=== PATIENT | male | born 1965 | race Two or more races ===

== ENCOUNTER 2021-12-19 16:32 | Inpatient (IN) | payer MEDICAID ==
[~2021-12-19] VITALS: Ht 177.8 cm; Wt 85.3 kg
--- NOTE | 2021-12-19 17:27 | NUR ---
COVID ANTIGEN OBTAINED AND SENT TO LAB
--- NOTE | 2021-12-19 17:30 | NUR ---
COVID PCR DONE AND SENT TO THE LAB
--- NOTE | 2021-12-19 17:37 | NUR ---
BIB [facility] 80 FROM AN [facility]RG[facility], TESTED (+) 2 WEEKS AGO, LOW O2SAT IN CLINIC, C/O WEAKNESS, BODYPAIN, NO APPETITE, COUGH X 2 WEEKS. DENIES ANY FEVER OR CHEST PAIN. AWAITING MD UNDERWOOD
[2021-12-19] MEDS ORDERED: NITROFURANTOIN/MONOHYDRATE MACROCRYSTALS 100 MG CAPSULE PO ONE (19:00)
[2021-12-19] MEDS ORDERED: NITROFURANTOIN/MONOHYDRATE MACROCRYSTALS 100 MG CAPSULE ONE (19:21)
[2021-12-19 20:11] LABS: BASOPHILS % (AUTO) 0.3 % (0.0-2.0); EOSINOPHILS % (AUTO) 1.6 % (0.0-6.0); HEMATOCRIT 39 % (39-51); HEMOGLOBIN 13.8 g/dL (13.5-17.5); LYMPHOCYTES # (AUTO) 1.9 K/uL (0.8-4.8); LYMPHOCYTES % (AUTO) 24.6 % (20.0-44.0); MEAN CORPUSCULAR HGB CONC 36 g/dl (31.0-36.0); MEAN CORPUSCULAR VOLUME 101 fL (80-96); MONOCYTES # (AUTO) 0.8 K/uL (0.1-1.30); MONOCYTES % (AUTO) 10.2 % (2.0-12.0); NEUTROPHILS # (AUTO) 4.9 K/uL (1.8-8.9); NEUTROPHILS % (AUTO) 63.3 % (43.0-81.0); PLATELET COUNT (AUTO) 573 K/uL (150-450); RED BLOOD CELL COUNT(AUTO) 3.85 MIL/uL (4.5-6.0); WHITE BLOOD COUNT (AUTO) 7.8 K/uL (4.3-11.0)
--- NOTE | 2021-12-19 20:12 | NUR ---
RT AT BEDSIDE
[2021-12-19 20:22] LABS: CALCIUM, SERUM 8.6 mg/dL (8.5-10.1); CARBON DIOXIDE 26 mmol/L (21-32); CHLORIDE 106 mmol/L (98-107); CREATININE 1.1 mg/dL (0.6-1.3); GLUCOSE 107 mg/dL (74-106); POTASSIUM 4.4 mmol/L (3.5-5.1); SODIUM SERUM 137 mmol/L (136-145); UREA NITROGEN, BLOOD 17 mg/dL (7-18)
[2021-12-19 20:26] LABS: C-REACTIVE PROTEIN 0.2 mg/dL (0.0-0.9); D-DIMER 3.72 mg/L(FEU (0.17-0.50)
[2021-12-19 20:35] LABS: ALANINE AMINOTRANSFERASE 82 U/L (12-78); ALKALINE PHOSPHATASE 115 U/L (46-116); ASPARTATE AMINOTRANSFERASE 34 U/L (15-37); BILIRUBIN,TOTAL 0.4 mg/dL (0.2-1.0); TOTAL PROTEIN, SERUM 7.3 g/dL (6.4-8.2)
[2021-12-19] MEDS ORDERED: IOHEXOL-350 100 ML VIAL IV ONE (20:36)
[2021-12-19] MEDS ORDERED: IV NS 0.9% 250 ML IV ONE (20:36)
[2021-12-19] MEDS ORDERED: CT SWABBABLE VALVE TRANS SET 1 EA INFUS.SET MC ONE (20:37)
[2021-12-19] MEDS ORDERED: DEXAMETHASONE SOD PHOSPHATE 10 MG/ML VIAL IV ONE (21:00)
[2021-12-19] MEDS ORDERED: DEXAMETHASONE SOD PHOSPHATE 10 MG/ML VIAL ONE (22:13)
--- NOTE | 2021-12-19 22:15 | NUR ---
PT BACK FROM CT
[2021-12-20] MEDS ORDERED: ENOXAPARIN SODIUM 40 MG/0.4 ML DISP.SYRIN SQ ONE (00:28)
[2021-12-20] MEDS ORDERED: MAGNESIUM HYDROXIDE 30 ML UDC PO PRN (00:30)
[2021-12-20] MEDS ORDERED: ACETAMINOPHEN 325 MG TABLET PO PRN (00:30)
[2021-12-20] MEDS ORDERED: ONDANSETRON HCL/PF 4 MG/2 ML VIAL IVP PRN (00:30)
[2021-12-20] MEDS ORDERED: MAG HYDROX/AL HYDROX/SIMETH 30 ML UDC PO PRN (00:30)
[2021-12-20] MEDS ORDERED: ALBUTEROL SULFATE INH 18 GM HFA.AER.AD IH PRN (00:30)
[2021-12-20] MEDS ORDERED: Z GUARD REMEDY 4 OZ OINT TP PRN (00:30)
[2021-12-20] MEDS: ENOXAPARIN SODIUM 40 MG/0.4 ML DISP.SYRIN SQ SCH ×2 (00:45→20:59)
[2021-12-20 03:19] LABS: ABG BASE EXCESS 3.8 mmol/L; ABG PH 7.461 (7.350-7.450); ABG PO2 61.2 mmHg (75.0-100.0); COHb 0.5 % (0.5-1.5); MetHb 0.3 % (0.0-1.5); O2Hb 91.1 % (94.0-97.0); SITE, ABG Left Radial; VENT MODE, BG RA
--- NOTE | 2021-12-20 06:45 | NUR ---
ADLS DONE. ALL NEEDS MET. VSS AT THIS TIME.
[2021-12-20] MEDS ORDERED: ALBUTEROL SULFATE 8 GM HFA.AER.AD IH PRN (08:00)
[2021-12-20] MEDS ORDERED: PANTOPRAZOLE 40 MG TABLET.DR PO ONE (08:04)
[2021-12-20] MEDS: PANTOPRAZOLE 40 MG TABLET.DR PO SCH (08:08)
[2021-12-20 08:12] LABS: BILIRUBIN,URINE NEGATIVE (NEGATIVE); COLOR,URINE YELLOW (YELLOW); LEUKOCYTE ESTERASE ,URINE NEGATIVE (NEGATIVE); NITRITE, URINE NEGATIVE (NEGATIVE); PH,URINE 7.5 (5.0-8.0); PROTEIN,URINE NEGATIVE (NEGATIVE); UGLUCOSE NEGATIVE (NEGATIVE); UROBILINOGEN,URINE 0.2 EU/dL (0.2)
--- NOTE | 2021-12-20 08:31 | NUR ---
REPORT GIVEN TO MIHIR ALLAN. PT AWAITING TRANSPORT.
--- NOTE | 2021-12-20 09:12 | NUR ---
patient room air sat at rest 86%,per md arrange home oxygen.
[2021-12-20] MEDS: DEXAMETHASONE SOD PHOSPHATE 10 MG/ML VIAL IV SCH (10:03)
[2021-12-20 12:00] VITALS: BP 128/75
--- NOTE | 2021-12-20 12:53 | NUR ---
INSTRUCTOR WEAVING NOTES PT CAME TO UNIT IN STABLE CONDITION, A/O X4, [place] SPEAKING, NO S.S OF SOB OR DISTRESS NOTED. IV ACCESS ON R AC 20G. PT IS AMBULATORY WITH SKIN INTACT. REPORT RECEIVED BY AMANDA IN ER. ALL SAFETY MEASURES IN PLACE, BED IN LOWEST LOCKED POSITION, SIDE RAILS UP X3, CALL LIGHT WITHIN REACH, WILL CONTINUE TO MONITOR THROUGHOUT SHIFT.
[2021-12-20 18:00] VITALS: BP 115/70
--- NOTE | 2021-12-20 18:21 | NUR ---
RN CLOSING NOTES PT IS RESTING BED, A.O X 4 CITIZEN OF [place] SPEAKING, ON 4L NC SATING AT 94%. PT IS AMBULATORY AND SKIN IS INTACT. IV ACCESS AT R AC 20G. NO S/S OF SOB OR DISTRESS. NO C/O PAIN. PT TOLERATED ALL MEDICATIONS AND TREATMENTS WELL. ALL SAFETY MEASURES IN PLACE, BED IN LOWEST LOCKED POSITION, SIDE RAILS UP X3, CALL LIGHT WITHIN REACH. WILL ENDORSE TO TOBACCO ROLLER NURSE FOR EMILY.
[2021-12-20] MEDS ORDERED: KEY,NONCONTROL,TO KEEP IN PYXI 1 EA MC ONE (19:06)
--- NOTE | 2021-12-20 19:35 | NUR ---
RN OPENING NOTES RECEIVED PT IN BED AWAKE, A/O X4, [place] SPEAKING AND VERBALLY RESPONSIVE. ON 4L VIA N/C AND PT TOLERATED WELL. IV ACCESS ON RAC# 20G INTACT AND PATENT. NO S/S OF INFILTRATIONS. NO C/O PAIN OR DISCOMFORT. NO ACUTE DISTRESS. ALL SAFETY MEASURES IN PLACE, BED IN LOWEST POSITION AND LOCKED. SIDE RAILS UP X3, PLACE CALL LIGHT WITHIN REACH. WILL CONTINUE TO MONITOR
[2021-12-20 20:00] VITALS: BP 112/72
--- NOTE | 2021-12-20 20:36 | NUR ---
RN NOTES: PT STRONGLY REFUSED TO VITAL SIGNS, OFFERED X3, EXPLAINED RISK AND BENEFIT BUT STILL REFUSED. WILL CONTINUE TO MONITOR Addendum: 12/20/21 at 2346 by LAURENT PETERSON RN wrong patient
--- NOTE | 2021-12-20 21:20 | NUR ---
RN NOTES: VENTOLIN 2 PUFF GIVEN C/O SOB. PT TOLERATED WELL. WILL CONTINUE TO MONITOR
[2021-12-21] VITALS: BP 97/60
[2021-12-21] MEDS: IV NS 0.9% 1,000 ML IV PRN ×2 (00:09→14:03)
[2021-12-21] MEDS: GUAIFENESIN/D-METHORPHAN HB 5 ML UDC PO PRN ×2 (00:12→14:03)
--- NOTE | 2021-12-21 00:20 | NUR ---
RN NOTES: RT C/O NON-PRODUCTIVE COUGH. NOTIFIED DEMARCUS CHANDLER. ORDERED ROBITUSSIN DM SYRUP 5ML Q6HRS FOR COUGH. ORDER NOTED AND CARRIED OUT. COUGH MEDICATIONS GIVEN PER PRN ORDER AND PT TOLERATED WELL. WILL CONTINUE TO MONITOR
[2021-12-21 04:00] VITALS: BP 111/74
--- NOTE | 2021-12-21 06:34 | NUR ---
RN CLOSING NOTES PT IN BED AWAKE, A/O X4, [place] SPEAKING AND VERBALLY RESPONSIVE. ON 4L VIA N/C, O2 SAT 96% AND PT TOLERATED WELL. IV ACCESS ON RAC# 20G INTACT AND PATENT, RUNNING NS @75CC/HR. NO S/S OF INFILTRATIONS. NO C/O PAIN OR DISCOMFORT. NO ACUTE DISTRESS. ALL DUE MED GIVEN ORDER AND PT TOLERATED WELL. COOPERATIVE WITH CARE. ALL SAFETY MEASURES IN PLACE, BED IN LOWEST POSITION AND LOCKED. SIDE RAILS UP X3, PLACE CALL LIGHT WITHIN REACH. WILL ENDORSE TO MORNING SHIFT NURSE.
--- NOTE | 2021-12-21 07:30 | NUR ---
RN OPENING NOTES PT RECEIVED IN BED AWAKE, A/O X4. ON 4L N/C AND PT TOLERATED WELL. IV ACCESS ON RAC# 20G INTACT AND PATENT. NO S/SX OF SOB, DISTRESS OR PAIN NOTED. PT VERBALLY RESPONSIVE AND ABLE TO MAKE HIS NEED KNOWN. ALL SAFETY MEASURES IN PLACE, BED IN LOWEST POSITION AND LOCKED. SIDE RAILS UP X3, PLACE CALL LIGHT WITHIN REACH. WILL CONTINUE TO MONITOR
[2021-12-21 07:43] LABS: ALBUMIN 2.7 g/dL (3.4-5.0); BILIRUBIN,TOTAL 0.4 mg/dL (0.2-1.0); CALCIUM, SERUM 8.7 mg/dL (8.5-10.1); MAGNESIUM 2.4 mg/dL (1.8-2.4); PHOSPHORUS 4.3 mg/dL (2.5-4.9); POTASSIUM 4.1 mmol/L (3.5-5.1); TOTAL PROTEIN, SERUM 6.8 g/dL (6.4-8.2)
[2021-12-21 08:00] VITALS: BP 118/72
[2021-12-21] MEDS: PANTOPRAZOLE 40 MG TABLET.DR PO SCH (08:22)
[2021-12-21] MEDS: DEXAMETHASONE SOD PHOSPHATE 10 MG/ML VIAL IV SCH (08:23)
--- NOTE | 2021-12-21 08:24 | NUR ---
RN NOTE PER DR MCKOY TITRATE O2 FROM 4L TO 3LITER, WILL CONTINUE TO ASSESS AND MONITOR.
[2021-12-21 08:47] LABS: BASOPHILS # (AUTO) 0.1 K/uL (0.0-0.2); BASOPHILS % (AUTO) 0.8 % (0.0-2.0); HEMATOCRIT 43 % (39-51); HEMOGLOBIN 13.9 g/dL (13.5-17.5); LYMPHOCYTES # (AUTO) 2.2 K/uL (0.8-4.8); LYMPHOCYTES % (AUTO) 17.4 % (20.0-44.0); MEAN CORPUSCULAR HGB CONC 33 g/dl (31.0-36.0); MEAN CORPUSCULAR VOLUME 100 fL (80-96); MONOCYTES % (AUTO) 7.9 % (2.0-12.0); NEUTROPHILS # (AUTO) 9.2 K/uL (1.8-8.9); NEUTROPHILS % (AUTO) 73.9 % (43.0-81.0); PLATELET COUNT (AUTO) 460 K/uL (150-450); RED BLOOD CELL COUNT(AUTO) 4.28 MIL/uL (4.5-6.0); WHITE BLOOD COUNT (AUTO) 12.5 K/uL (4.3-11.0)
--- NOTE | 2021-12-21 09:24 | NUR ---
RN NOTE REASSESS PT O2 SAT 1 HR AFTER TITRATING PER DR MCKOY ORDER, O2 SAT 97%, TOLERATING WELL PT A/OX4, TITRATE THE O2 FROM 3 TO 2, WILL CONTINUE TO REASSESS AND MONITOR
--- NOTE | 2021-12-21 10:24 | NUR ---
RN NOTE ASSESS PT O2SAT IS 93% VIA NC 2L, PT A/OX4, NO S/SX OF SOB AND DISTRESS, KEEP PT REASSESS AND MONITOR
--- NOTE | 2021-12-21 14:03 | NUR ---
RN NOTE PT A/OX4, COMPLAIN OF COUGH AND CHEST PAIN 8 OUT OF 10 THAT CAUSED BY COUGH. GUAFENESIN GIVEN, WILL CONTINUE TO MONITOR PT
--- NOTE | 2021-12-21 15:47 | NUR ---
RN NOTE ASSESS PT O2SAT IS 96% VIA NC 2L, PT A/OX4, NO S/SX OF SOB AND DISTRESS, WILL REASSESS AND MONITOR
[2021-12-21 16:00] VITALS: BP 132/77
--- NOTE | 2021-12-21 18:47 | NUR ---
RN OPENING NOTES PT REMAIN IN BED AWAKE, A/O X4. ON 2L N/C AND O2SAT 96%, AND PT TOLERATED WELL. IV ACCESS ON RAC# 20G INTACT AND PATENT AND RUNNING 75CC ML/HR. NO S/SX OF SOB, DISTRESS OR PAIN NOTED. PT VERBALLY RESPONSIVE AND ABLE TO MAKE HIS NEED KNOWN. PT HAD 3200 UOP, ALL SAFETY MEASURES IN PLACE, BED IN LOWEST POSITION AND LOCKED. SIDE RAILS UP X3, PLACE CALL LIGHT WITHIN REACH. WILL CONTINUE TO MONITOR
--- NOTE | 2021-12-21 19:51 | NUR ---
RN NOTE RECEIVED PATIENT IN BED, ALERT AND ORIENTED X4. ABLE TO MAKE NEEDS KNOWN. BREATHING EVEN AND UNLABORED. CURRENTLY ON 3L/MIN OXYGEN VIA NASAL CANNULA. TOLERATING WELL, NO SOB NOTED. DENIES CHEST PAIN. NO COUGH/CONGESTION NOTED AT THIS TIME. SKIN WARM AND DRY. NOTED WITH RIGHT AC 20G, RUNNING NS AT 75 CC/HR. NO INFILTRATION NOTED. NO REDNESS NOTED. PATIENT PROVIDED WITH URINAL. REMINDED PATIENT TO USE CALL LIGHT WHEN IN NEED OF ASSISTANCE. WILL CONTINUE TO MONITOR. CALL LIGHT WITHIN REACH.
[2021-12-21] MEDS: ENOXAPARIN SODIUM 40 MG/0.4 ML DISP.SYRIN SQ SCH (20:15)
[2021-12-22] MEDS: IV NS 0.9% 1,000 ML IV PRN (02:40)
[2021-12-22 04:00] VITALS: BP 122/79
--- NOTE | 2021-12-22 07:28 | NUR ---
RN NOTES PATIENT RESTING IN BED, AWAKE AND VERBALLY RESPONSIVE. A/O X4, [place]-SPEAKING, ABLE TO MAKE NEEDS KNOWN. PIE BAKER AT BEDSIDE FOR CXR. NO COMPLAINT OF PAIN AT THIS TIME; VERBALIZED DISCOMFORT WHEN COUGHING. INSTRUCTED PATIENT TO USE PILLOW FOR SPLINTING TO ASSIST W/ COUGHING, VERBALIZED UNDERSTANDING AND ABLE TO RETURN DEMO. AMBULATES W/ STEADY GAIT. SAFETY MEASURES IN PLACE. WILL CONTINUE TO MONITOR.
[2021-12-22 08:00] VITALS: BP 134/80
[2021-12-22] MEDS: DEXAMETHASONE SOD PHOSPHATE 10 MG/ML VIAL IV SCH (08:03)
[2021-12-22] MEDS: PANTOPRAZOLE 40 MG TABLET.DR PO SCH (08:03)
--- NOTE | 2021-12-22 09:37 | NUR ---
RN NOTES PATIENT SEEN BY DR. MCKOY TODAY; PER MD, IF PATIENT ABLE TO TOLERATE O2 AT 2L TODAY, MAY D/C TO HOME. PATIENT CURRENTLY TITRATED TO 2L (PREVIOUSLY ON 3L) AND WILL MONITOR O2 SAT DURING THE DAY.
[2021-12-22] MEDS ORDERED: DEXA4TAB PO (10:32)
--- NOTE | 2021-12-22 12:35 | NUR ---
RN NOTES NO COMPLAINT OF SOB NOR RESPIRATORY DISTRESS AT THIS TIME. TOLERATING O2 AT 2LPM VIA NC.
--- NOTE | 2021-12-22 15:50 | NUR ---
RN NOTES DISCHARGE INSTRUCTION AND EDUCATION PROVIDED TO PATIENT; [facility], DEPARTMENT OF SOCIOLOGY CHAIR, AT BEDSIDE TO TRANSLATE FOR PATIENT FOR REINFORCEMENT. A/O X4 AND ABLE TO MAKE NEEDS KNOWN. DEMONSTRATED USE OF PORTABLE O2 TANK AND CONCENTRATOR TO PATIENT; VERBALIZED UNDERSTANDING AND ABLE TO RETURN DEMO. SPOKE W/ KELL, INFORMATION SYSTEMS CONSULTANT, AND INFORMED ABOUT NEED FOR TRANSPORTATION FOR PATIENT. TRANSPO TO CALL BACK FOR SPECIFIC [employer] EQUIPMENT TIME.
--- NOTE | 2021-12-22 15:59 | NUR ---
RN NOTES DISCHARGE FORM AND BELONGINGS LIST FORM SIGNED BY PATIENT AND ALL BELONGINGS ACCOUNTED FOR. IV LINE REMOVED, NO BLEEDING NOTED.
[2021-12-22 16:00] VITALS: BP 135/86
--- NOTE | 2021-12-22 19:10 | NUR ---
RN NOTES RECEIVED REPORT FROM MORNING RN. PATIENT IN BED A/O X4 [place] SPEAKING. WITH OXYGEN INHALATION AT 3LPM VIA NASAL CANULA TOLERATING WELL SATING 98%. VITAL SIGNS TAKEN AND RECORDED AFEBRILE. FOR D/C TODAY WILL WAIT FOR THE TRANSPORTATION . ALL SAFETY MEASURES IN PLACE AT ALL TIMES. HOB ELEVATED. CALL LIGHT WITHIN REACH. ABED ON LOWEST POSITION AND LOCKED. ALL NEEDS ATTENDED. WILL CLOSELY MONITOR.
--- NOTE | 2021-12-22 21:30 | NUR ---
RN NOTES PATIENT WHEELED TO THE LOBBY. ALL BELONGINGS GIVEN. OXYGEN CONCENTRATOR WITH THE PATIENT. PICKED-UP BY FAMILY MEMBER. PATIENT REMAINS STABLE.
== END 2021-12-22 22:12 | disposition home health service (06) | DRG 137 ==
LOC: ER 16:34 → TRANSITION 23:15 → TELE1 12-20 08:43 → MEDSG1 12-21 01:32
PROVIDERS: ADMIT Internal Medicine; ATTEND Internal Medicine
DX: U07.1 COVID-19 (principal); J96.01 Acute respiratory failure with hypoxia; J12.82 Pneumonia due to coronavirus disease 2019; K76.0 Fatty (change of) liver, not elsewhere classified
CPT/HCPCS: 36415; 36600; 71045-TC; 80053-TC; 83605-TC; 83615-TC; 83735-TC; 83880; 84100-TC; 84484-TC; 85025-TC; 85378-TC; 85730-TC; 86140-TC; 87040-TC; 87081-TC; C9803; G0378; J1100; J1650; J2405; J7030; J7050; Q9967; U0003

== ENCOUNTER 2022-08-10 18:10 | Emergency (ER) | payer MEDICAID, OTHER ==
[~2022-08-10] VITALS: Ht 167.6 cm; Wt 98.9 kg
[~2022-08-10 18:10] MED LIST: DEXA4TAB PO
[2022-08-10 18:49] VITALS: BP 156/91
[2022-08-10] MEDS ORDERED: MELA5TAB PO (19:34)
[2022-08-10] MEDS ORDERED: ESCI5TAB PO (19:34)
--- NOTE | 2022-08-10 19:45 | NUR ---
Patient discharged to home in stable condition. Written and verbal after care instructions given. Patient verbalizes understanding of instruction. Pt ambulatory with a steady gait
== END 2022-08-10 19:47 | disposition home or self-care (01) ==
LOC: ER 18:19
DX: F41.9 Anxiety disorder, unspecified (principal); G47.00 Insomnia, unspecified; Z79.899 Other long term (current) drug therapy